=== PATIENT | male | born 1945 | race Caucasian/White ===

== ENCOUNTER 2024-06-12 09:37 | Emergency (ER) | payer OTHER ==
[~2024-06-12] VITALS: Ht 167.6 cm; Wt 85.0 kg
[2024-06-12 09:39] VITALS: O2SAT 96
[2024-06-12 09:46] VITALS: BP 135/59; PULSE 77; RESP 18; TEMP 98.8; O2SAT 99
[2024-06-12] MEDS: ACETAMINOPHEN 650MG/20.3ML UDC PO ONE (10:17)
[2024-06-12] MEDS: ACETAMINOPHEN 650MG/20.3ML UDC PO NR (13:46)
[2024-06-12] MEDS ORDERED: SULF1TAB48 MT (14:57)
== END 2024-06-12 15:33 | disposition home or self-care (01) ==
LOC: ER 09:37
DX: E11.628 Type 2 diabetes mellitus with other skin complications (principal); L03.90 Cellulitis, unspecified; I10 Essential (primary) hypertension; E78.5 Hyperlipidemia, unspecified
CPT/HCPCS: 99284

== ENCOUNTER 2024-07-15 09:22 | Emergency (ER) | payer MEDICAID, OTHER ==
[~2024-07-15] VITALS: Ht 162.6 cm; Wt 81.6 kg
[~2024-07-15 09:22] MED LIST: SULF1TAB48 MT
[2024-07-15 09:24] VITALS: O2SAT 100
[2024-07-15 09:56] LABS: BASOPHILS % 0.4 % (0.0-2.0); EOSINOPHILS % 2.1 % (0.0-5.0); HEMATOCRIT. 36.2 % (42.0-52.0); HEMOGLOBIN. 11.7 g/dL (14.0-18.0); MEAN CORPUSCULAR HEMOGLOBIN 29.1 pg (28.0-32.0); MEAN CORPUSCULAR HGB CONC 32.4 g/dL (31.0-37.0); MEAN CORPUSCULAR VOLUME 89.9 fL (80.0-94.0); MEAN PLATELET VOLUME 8.5 fl (7.4-10.4); MONOCYTES % 6.9 % (2.0-8.0); NEUTROPHILS % 59.6 % (40.0-76.0); PLATELET 184 x1000/uL (130-400); RED BLOOD CELL COUNT 4.03 mill/uL (4.7-6.1); RED CELL DISTRIBUTION WIDTH 13.3 % (11.6-14.6); WHITE BLOOD COUNT 8.1 x1000/uL (4.5-11.0)
[2024-07-15 10:05] LABS: CARBON DIOXIDE 27 mEq/L (21-32); CHLORIDE 104 mEq/L (98-107); POTASSIUM 4.9 mEq/L (3.5-5.1); SODIUM 139 mEq/L (136-145)
[2024-07-15 10:07] LABS: PROTHROMBIN TIME 10.7 sec (9.6-11.0)
[2024-07-15 10:11] LABS: CREATININE 1.4 mg/dL (0.6-1.3); GLUCOSE 188 mg/dL (70-105); TROPONIN I HIGH SENSITIVITY 9 ng/L (3.0-53); UREA NITROGEN BLOOD 28 mg/dL (9-23)
[2024-07-15 10:37] LABS: ALANINE AMINOTRANSFERASE 21 IU/L (10-49); ALBUMIN 4.3 g/dL (3.2-4.8); ASPARTATE AMINOTRANSFERASE 31 IU/L (<34); BILIRUBIN DIRECT 0.1 mg/dL (<=3.0); BILIRUBIN TOTAL 0.5 mg/dL (0.1-1.0); PROTEIN TOTAL 6.8 g/dL (6.0-8.3)
[2024-07-15] MEDS: ACETAMINOPHEN 325MG TABLET PO STA (11:18)
[2024-07-15 12:35] LABS: TROPONIN I HIGH SENSITIVITY 7 ng/L (3.0-53)
[2024-07-15 15:48] VITALS: BP 150/64; PULSE 63; RESP 16; TEMP 37.1; O2SAT 100
== END 2024-07-15 15:50 | disposition home or self-care (01) ==
LOC: ER 09:33
DX: I10 Essential (primary) hypertension (principal); E11.9 Type 2 diabetes mellitus without complications
CPT/HCPCS: 36415; 71045; 80048; 80076; 83880; 84484; 85025; 93005; 99285